=== PATIENT | female | born 1980 | race Caucasian/White ===

== ENCOUNTER 2021-06-04 19:00 | Emergency (ER) | payer BC, MEDICAID ==
[~2021-06-04] VITALS: Ht 157.5 cm; Wt 78.9 kg
--- NOTE | 2021-06-04 19:51 | NUR ---
PT BIBS C/O HAVING HIVES [id number]. PATIENT IS ALERT AND ORIENTED X3. AMBULATORY WITH NON LABORED BREATHING. PATIENT WAS PLACED IN A GOWN IN BED 10 ON A MONITOR AND POX. PATIENT DENIES HAVING ANY DIFFICULTY BREATHING, NAUSEA OR VOMITTING.
[2021-06-04] MEDS ORDERED: predniSONE 20 MG TABLET ONE (19:54)
[2021-06-04] MEDS ORDERED: EPINEPHRINE (1:1000) 1 MG/ML AMPUL ONE (19:54)
[2021-06-04] MEDS ORDERED: diphenhydrAMINE HCL 50 MG CAPSULE ONE (19:54)
[2021-06-04] MEDS ORDERED: FAMOTIDINE (20 MG) 20 MG TABLET ONE ×2 (19:55→19:59)
[2021-06-04] MEDS: EPINEPHRINE (1:1000) MDV 30 MG/30ML VIAL SUBCUT ONE (20:00)
[2021-06-04] MEDS: diphenhydrAMINE HCL 50 MG CAPSULE PO ONE (20:00)
[2021-06-04] MEDS: predniSONE 10 MG TABLET PO ONE (20:00)
[2021-06-04] MEDS: FAMOTIDINE (20 MG) 20 MG TABLET PO ONE (20:00)
[2021-06-04] MEDS ORDERED: FAMO-131 PO (20:51)
[2021-06-04] MEDS ORDERED: DIPH50CA4 PO (20:51)
[2021-06-04] MEDS ORDERED: PRED50TA PO (20:51)
--- NOTE | 2021-06-04 20:54 | NUR ---
Patient discharged to home in stable condition. Written and verbal after care instructions given. Patient verbalizes understanding of instruction. PT ambulatory with a steady gait. Pt picked up by daughter
[2021-06-04 21:06] VITALS: BP 128/80
== END 2021-06-04 20:54 | disposition home or self-care (01) ==
LOC: ER 19:00
DX: L50.0 Allergic urticaria (principal); Z79.52 Long term (current) use of systemic steroids
CPT/HCPCS: 96372; 99284; J0171 ×2; J7512 ×2; Q0163